=== PATIENT | female | born 1955 | race Caucasian/White ===

== ENCOUNTER 2020-06-19 10:35 | Day surgery (SDC) | payer MEDICARE ==
[~2020-06-19] VITALS: Ht 160 cm; Wt 74.4 kg
[2020-06-19] MEDS ORDERED: MYNEPHRON CAPSUL1 MG (10:58)
[2020-06-19] MEDS ORDERED: LOSA25 (10:58)
[2020-06-19] MEDS ORDERED: ASPI81CH (10:58)
[2020-06-19] MEDS ORDERED: GABA100 (10:59)
--- NOTE | 2020-06-19 11:25 | NUR ---
06/19/20 1125 Marie Mccain 1ST IV ATTEMPT IN RH INFILTRATED,STARTED BY BECCA SALAZAR 2ND IV ATTEMPT IN RW INFILTRATED, STARTED BY GOSIA HICKS 3RD IV ATTEMPT IN RAC SUCCESSFUL, STARTED BY GOSIA HICKS
--- NOTE | 2020-06-19 12:17 | NUR ---
06/19/20 1217 Cleopatra Edmond (Imelda IV ASSESSED UPON ENTRY TO PROCEDURE ROOM; IV INFILTRATED. RIGHT AC & LOWER BICEP SWOLLEN. PT DENIES PAIN. NEW IV STARTED IN LEFT WRIST BY BECCA, SUCCESSFUL. PT TOLERATED WELL.
== END 2020-06-19 13:35 | disposition home or self-care (01) ==
LOC: ORSCSDS 10:35
PROVIDERS: Internal Medicine Gastroenterology
PROC: 0DB98ZX Excision of Duodenum, Via Natural or Artificial Opening Endoscopic, Diagnostic (ICD-10-PCS; principal; 2020-06-19 12:00)
PROC: 0DBN8ZX Excision of Sigmoid Colon, Via Natural or Artificial Opening Endoscopic, Diagnostic (ICD-10-PCS; principal; 2020-06-19 12:00)
PROC: 0DB78ZX Excision of Stomach, Pylorus, Via Natural or Artificial Opening Endoscopic, Diagnostic (ICD-10-PCS; principal; 2020-06-19 12:00)
PROC: 0DBE8ZX Excision of Large Intestine, Via Natural or Artificial Opening Endoscopic, Diagnostic (ICD-10-PCS; principal; 2020-06-19 12:00)
PROC: 0DB58ZX Excision of Esophagus, Via Natural or Artificial Opening Endoscopic, Diagnostic (ICD-10-PCS; principal; 2020-06-19 12:00)
DX: K92.1 Melena (principal); R10.9 Unspecified abdominal pain; K29.70 Gastritis, unspecified, without bleeding; B96.81 Helicobacter pylori [H. pylori] as the cause of diseases classified elsewhere; K29.80 Duodenitis without bleeding; K52.9 Noninfective gastroenteritis and colitis, unspecified; K21.0 Gastro-esophageal reflux disease with esophagitis; K63.5 Polyp of colon; K22.2 Esophageal obstruction; K57.30 Diverticulosis of large intestine without perforation or abscess without bleeding; K64.1 Second degree hemorrhoids; I10 Essential (primary) hypertension; G47.33 Obstructive sleep apnea (adult) (pediatric); Z79.899 Other long term (current) drug therapy; Z79.82 Long term (current) use of aspirin
CPT/HCPCS: 88305; 88342; J2405; J2704; J7120